=== PATIENT | female | born 1975 | race Caucasian/White ===

== ENCOUNTER 2020-08-12 15:01 | Outpatient (REF) | payer BC, SELFPAY ==
--- NOTE | 2020-08-12 15:10 | XR_ITS ---
EXAMINATION: XR KNEE, RIGHT CLINICAL INFORMATION: Injury of right knee. Pain. COMPARISON: None TECHNIQUE: Four views of the right knee. FINDINGS: Bones and soft tissues are normal. No fracture or joint effusion. Alignment is anatomic. Joint spaces are well maintained. No abnormal soft tissue calcification. XR/XR knee RT 4V IMPRESSION: Normal right knee.
== END 2020-08-12 15:02 | disposition home or self-care (01) ==
LOC: HO.HMGCX 15:01
PROVIDERS: PCP Internal Medicine; Visit Provider Nurse Practitioner Family
DX: M25.561 Pain in right knee (principal)
CPT/HCPCS: 73564

== ENCOUNTER 2020-08-16 11:24 | Outpatient (REF) | payer BC, SELFPAY ==
--- NOTE | 2020-08-16 11:25 | XR_ITS ---
EXAMINATION: XR FOREARM, LEFT CLINICAL INFORMATION: Pain in left forearm COMPARISON: None TECHNIQUE: AP and lateral views of the left forearm were obtained. FINDINGS: The bones and soft tissues are normal. No fracture. Imaged portions of the elbow and wrist are unremarkable. XR/XR forearm LT 2V IMPRESSION: Unremarkable left forearm exam
== END 2020-08-16 11:25 | disposition home or self-care (01) ==
LOC: HO.XRAY 11:24
PROVIDERS: PCP Internal Medicine; Visit Provider Nurse Practitioner Family
DX: M79.632 Pain in left forearm (principal)
CPT/HCPCS: 73090

== ENCOUNTER 2021-09-19 06:01 | Outpatient (REF) | payer BC, SELFPAY | END 2021-09-19 06:02 | disposition home or self-care (01) | LOC: HO.HMGCLDS 06:01 | PROVIDERS: PCP Internal Medicine; Visit Provider Internal Medicine | DX: Z20.822 Contact with and (suspected) exposure to COVID-19 (principal) | CPT/HCPCS: C9803; U0003; U0005 ==

== ENCOUNTER 2021-10-06 16:11 | Outpatient (REF) | payer BC, SELFPAY ==
--- NOTE | ~2021-10-06 | XR_ITS ---
EXAMINATION: XR LUMBOSACRAL SPINE CLINICAL INFORMATION: Sciatica left side COMPARISON: Lumbar spine radiograph from 02/08/2015 TECHNIQUE: Three views of the lumbosacral spine. FINDINGS: 5 nonrib-bearing lumbar-type vertebral bodies. No acute visible fracture or dislocation. Very slight levocurvature of the mid lumbar spine. Mild multilevel degenerative changes disc space narrowing, osteophyte formation, and facet arthropathy. Vertebral body heights and disc spaces are otherwise maintained. Posterior elements are intact. Paraspinal soft tissues are unremarkable. Visualized bowel gas is unremarkable. XR/XR lumbar spine 2-3V IMPRESSION: 1. No acute visible fracture or dislocation. 2. Very slight levocurvature of the mid lumbar spine. 3. Mild multilevel degenerative changes.
== END 2021-10-06 16:12 | disposition home or self-care (01) ==
LOC: HO.XRAY 16:11
PROVIDERS: PCP Internal Medicine; Visit Provider Internal Medicine
DX: M54.32 Sciatica, left side (principal)
CPT/HCPCS: 72100

== ENCOUNTER 2021-12-02 07:00 | Outpatient (RCR) | payer BC, OTHER, SELFPAY ==
--- NOTE | 2022-01-13 14:43 | MHC.PT.DC ---
[facility] [place] [facility] [place] [facility] [place] [facility] [address] Tarun Ren [address] [phone] F: [phone] F: [phone] F: [phone] F: [phone] Physical Therapy Discharge Report Diagnosis: LEFT SIDED SCIATICA Date of Surgery: Date of Evaluation: 10/30/21 Date of Discharge: 01/13/22 Treatments to Date: 7 Cancellations to Date: 2 No Shows to Date: 1 Discharge Status: Achieved Goals Improved Function Independent with HEP Patient Elected to Stop Discharge Summary: Pt BENEFITTED FROM PT INTERVENTION, INCLUDING PROGRESSIVE THER EXER AND MAN TECHN- HER RADICULAR SXS HAD CENTRALIZED AND SHE NOTED REDUCTION IN OVERALL PAIN- Pt DID NOT ATTEND LAST FEW SCHED APPTS. Electronically signed by: Silvia Coy,PT Please sign and return to therapist. Thank you for your referral.
== END 2022-01-13 14:44 | disposition home or self-care (01) ==
LOC: HO.PT 07:00
PROVIDERS: PCP Internal Medicine; Visit Provider Internal Medicine
DX: M54.32 Sciatica, left side (principal)
CPT/HCPCS: 97110; 97140; 97162

== ENCOUNTER 2021-12-22 19:27 | Outpatient (REF) | payer OTHER, SELFPAY ==
--- NOTE | ~2021-12-22 | MR_ITS ---
EXAMINATION: MR LUMBAR SPINE WITHOUT CONTRAST CLINICAL INFORMATION: Sciatica, left side. COMPARISON: Plain films of the lumbar spine 10/06/2021. TECHNIQUE: MRI of the lumbar spine was obtained using routine sequences without contrast. FINDINGS: VERTEBRAL BODIES AND PARASPINAL STRUCTURES: There is a mild levoscoliosis. There is narrowing of intervertebral disc height with loss of signal at L5-S1. Intervertebral disc height and signal appear normal at other levels. The vertebral bodies have normal height and contour no fractures are demonstrated. Marrow signal is homogenous. The visualized retroperitoneal structures are unremarkable. Uterus is bulky and there appears to be a fibroid measuring 4.1 cm along the superior aspect of the uterus (image 13/15, sequence 1). CONUS MEDULLARIS AND CAUDA EQUINA: Normal, terminating at the level of L1. The lower thoracic spinal cord appears normal. The cauda equina nerve roots and filum terminale appear normal. SPINAL LEVELS: L1-L2: The facet joints appear normal bilaterally. Disc contour is normal. There is no central stenosis or foraminal narrowing. L2-L3: There is mild bilateral facet arthropathy with ligamenta flava hypertrophy. Disc contour is normal. There is no central stenosis or foraminal narrowing. L3-L4: There is moderate right and mild left facet arthropathy. Disc contour is normal. There is no central stenosis or foraminal narrowing. L4-L5: There is moderate bilateral facet arthropathy with facet joint effusions and ligamenta flava hypertrophy. There is a diffuse disc bulge with a more focal disc protrusion posteriorly in the midline which distorts the ventral thecal sac but there is no central stenosis. There is no foraminal narrowing. L5-S1: There is mild bilateral facet arthropathy. There is a posterior disc protrusion with an annular fissure with an extruded component extending into the left subarticular recess, and there is mass effect on the traversing left S1 nerve root. The neural foramina are patent. There is no central stenosis. MR/MR lumbar spine wo con IMPRESSION: 1. At L5-S1 there is a posterior disc protrusion with an extruded component extending into the left subarticular recess with mass effect on the traversing left S1 nerve root. There is no central stenosis. 2. At L4-L5 there is a diffuse disc bulge with a more focal disc protrusion posteriorly in the midline but there is no central stenosis or foraminal narrowing. 3. The uterus appears bulky and these likely a fibroid which measures 4.1 cm. This could be further evaluated with pelvic ultrasound.
== END 2021-12-22 19:28 | disposition home or self-care (01) ==
LOC: HO.MRI 19:27
PROVIDERS: Visit Provider Internal Medicine
DX: M54.32 Sciatica, left side (principal)
CPT/HCPCS: 72148

== ENCOUNTER 2022-01-14 07:56 | Outpatient (REF) | payer OTHER, SELFPAY ==
[2022-01-19 21:02] LABS: HPV mRNA E6/E7 rflx Not Detected (Not Detected)
== END 2022-01-14 07:57 | disposition home or self-care (01) ==
LOC: HO.LAB 07:56
PROVIDERS: PCP Internal Medicine; Visit Provider Obstetrics & Gynecology
DX: Z01.419 Encounter for gynecological examination (general) (routine) without abnormal findings (principal)
CPT/HCPCS: 88142

== ENCOUNTER 2022-01-29 07:21 | Outpatient (REF) | payer OTHER, SELFPAY ==
--- NOTE | ~2022-01-29 | MM_ITS ---
EXAMINATION: MM SCREENING DIGITAL BREAST TOMOSYNTHESIS, BILATERAL CLINICAL INFORMATION: Screening. Asymptomatic. The lifetime risk of breast cancer based on the Tyrer-Cuzick Model is 15%. COMPARISON: Mammography: 02/26/2018, 09/03/2016, 08/22/2016 TECHNIQUE: Digital breast tomosynthesis is performed in both the craniocaudal and mediolateral oblique views along with computer-aided detection (CAD). Synthesized 2D images are generated from the tomosynthesis. FINDINGS: The breasts are heterogeneously dense, which may obscure small masses (ACR BI-RADS breast composition Category c). There are no significant masses, abnormal calcifications, or other abnormalities. Parenchymal pattern is similar to prior studies. There is no developing density or architectural abnormality. The axilla and skin contours are unremarkable. No significant changes. MM/MM tomosynthesis screening BI IMPRESSION: No mammographic evidence of malignancy. ASSESSMENT: BI-RADS 1: Negative RECOMMENDATION: Routine annual mammography screening. This patient's information was entered into a reminder system with a target due date for their next mammogram.
== END 2022-01-29 07:22 | disposition home or self-care (01) ==
LOC: HO.MAMMO 07:21
PROVIDERS: PCP Internal Medicine; Visit Provider Internal Medicine
DX: Z12.31 Encounter for screening mammogram for malignant neoplasm of breast (principal)
CPT/HCPCS: 77063; 77067

== ENCOUNTER → 2023-04-06 07:58 | Outpatient (BNVA) | payer OTHER, SELFPAY | PROVIDERS: PCP Internal Medicine; Visit Provider Obstetrics & Gynecology ==

== ENCOUNTER 2023-05-05 07:26 | Outpatient (REF) | payer OTHER, SELFPAY ==
--- NOTE | ~2023-05-05 | MM_ITS ---
EXAMINATION: MM SCREENING DIGITAL BREAST TOMOSYNTHESIS, BILATERAL CLINICAL INFORMATION: Screening. Asymptomatic. The lifetime risk of breast cancer based on the Tyrer-Cuzick Model is 16.2%. COMPARISON: Mammography: 01/29/2022, 02/26/2018, 09/03/2016, 08/22/2016. TECHNIQUE: Digital breast tomosynthesis is performed in both the craniocaudal and mediolateral oblique views along with computer-aided detection (CAD). Synthesized 2D images are generated from the tomosynthesis. FINDINGS: The breasts are extremely dense, which lowers the sensitivity of mammography (ACR BI-RADS breast composition Category d). There are no significant masses, abnormal calcifications, or other abnormalities. MM/MM tomosynthesis screening BI IMPRESSION: No mammographic evidence of malignancy. ASSESSMENT: BI-RADS BI-RADS 1 - Negative RECOMMENDATION: Routine annual mammography screening. 1 year F/U This examination should not preclude the clinical evaluation of a suspicious palpable abnormality. This patient's information was entered into a reminder system with a target due date for their next mammogram.
== END 2023-05-05 07:27 | disposition home or self-care (01) ==
LOC: HO.MAMMO 07:26
PROVIDERS: PCP Internal Medicine; Visit Provider Internal Medicine
DX: Z12.31 Encounter for screening mammogram for malignant neoplasm of breast (principal)
CPT/HCPCS: 77063; 77067

== ENCOUNTER → 2023-05-05 07:31 | Outpatient (BNV) | payer OTHER, SELFPAY | PROVIDERS: PCP Internal Medicine; Visit Provider Radiology Diagnostic Radiology | DX: Z12.31 Encounter for screening mammogram for malignant neoplasm of breast (principal) | CPT/HCPCS: 77063; 77067 ==

== ENCOUNTER 2023-06-30 07:53 | Outpatient (AMB) | payer OTHER, SELFPAY ==
--- NOTE | 2023-06-30 08:08 | MHC.OFFVIS ---
Intake Vital Signs 06/30/23 08:18 Height 5 ft 7 in Weight 130 lb BMI 20.4 BP 111/71 Blood Pressure Location Lt brachial Position Sitting Pulse 76 Intake Visit Reasons: Colonoscopy screening Intake Note: Patient new consult for 1st pre colonoscopy screening. Patient denies any GI issues. 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 He has no known family history GI cancer She has routine bowel pattern seems to be more on the constipated side however is able to manage with diet and fiber - Appetite is good She has no respiratory or cardiac issues She stays active works full-time No nausea, vomiting, hematemesis, hematochezia fevers [facility] Medical History Left sided sciatica Surgical History History of endometrial ablation History of tubal ligation History of appendectomy History of section Family History Father Medical history unknown Mother Diabetes CVD (cardiovascular disease) Heart disease Maternal Grandmother Breast cancer Paternal Grandmother Breast cancer Son No problems noted. Daughter No problems noted. Daughter No problems noted. Sister No problems noted. Sister No problems noted. Sister No problems noted. Social History Household Members: Spouse Household Members Other:: daughter Housing: House Alcohol intake: current Alcohol intake frequency: holidays/special occasions only Patient Tobacco Use Status: Never used Tobacco e-Cigarette/Vaping Use: Never Used Second Hand Smoke Exposure: No service: No Current occupational status: employed Current occupation: Bank Current occupational exposures/hazards: No Sexual orientation: Straight/Heterosexual Gender identity: Female Female Reproductive History Menstrual Age of Menarche: 12 Review of Systems Const All systems reviewed & are unremarkable except as noted in HPI and below Card Denies chest pain and Denies dyspnea Resp Denies dyspnea GI Denies abdominal pain, Denies hematochezia, Denies change in bowel habits, Denies heartburn, Denies nausea and Denies vomiting Physical Exam Vital Signs: Last Vital Signs Pulse 76 06/30/23 08:18 BP 111/71 06/30/23 08:18 BMI result Body Mass Index 20.4 Const General: cooperative, healthy appearing, comfortable, no acute distress and well groomed Nutritional Appearance: thin Orientation/consciousness: patient oriented x3 Limitations: no limitations Eyes Sclerae: sclerae normal Resp Effort & Inspection: normal respiratory effort and able to speak in complete sentences Auscultation: clear to auscultation bilaterally, no rales, no rhonchi and no wheezes Cardio Rate: regular rate Rhythm: regular rhythm Heart sounds: S1 normal heart sound present and S2 normal heart sound present GI Palpation (GI): Soft to palpation and nontender Auscultation: normal bowel sounds Skin General skin exam: no rashes or lesions noted Neuro General: patient oriented x3 Extrem General: Yes full ROM Psych Appearance: grossly normal and well kempt Mental Status: mental status grossly normal Speech and movement: Normal speech and movement present and Clear speech present Affect: normal affect Attitude: cooperative Thought process: Normal thought process present Thought content: Normal thought content present Insight: Good insight present (Psych) Judgement: Good judgement present (Psych) Assessment & Plan Assessment & Plan (1) Encounter for screening colonoscopy: Comment: A very pleasant 48-year-old female index screening colonoscopy no GI complaints Code(s): Z12.11 - Encounter for screening for malignant neoplasm of colon Plan: Index screening colonoscopy MiraLax Gatorade split prep Orders: Orders Colonoscopy - GI Use Only Today Z12.11 - Encounter for screening for malignant neoplasm of colon Medications: New polyethylene glycol 3350 (Miralax) Take as directed by mouth the day before your procedure. 238 grams PO ONCE 1 day PRN 238 grams 0RF laxative effect bisacodyl (Dulcolax (bisacodyl)) Take 4 tablets by mouth at 12:00pm the day before your procedure. 20 mg (4 x 5 mg) PO ONCE 1 day 4 tabs 0RF colonoscopy prep Z12.11 - Encounter for screening for malignant neoplasm of colon Patient Instructions: Pleasant, healthy 48-year-old female referred for index screening colonoscopy Index screening colonoscopy MiraLax Gatorade split prep-the literature given Discussed procedure, rare risks, need for escorted due to anesthesia Encouraged to call questions or concerns Coding Level of Care Code Est Pt Level 3 (41169) Diagnoses Encounter for screening colonoscopy Z12.11 Time Spent (min) 30
[2023-06-30 08:18] VITALS: BP 111/71; PULSE 76; BMI 20.4
== END 2023-06-30 09:50 | disposition home or self-care (01) ==
PROVIDERS: PCP Internal Medicine; Visit Provider Physician Assistant
DX: Z01.818 Encounter for other preprocedural examination (principal); Z12.11 Encounter for screening for malignant neoplasm of colon
CPT/HCPCS: S0285

== ENCOUNTER → 2023-06-30 07:53 | Outpatient (BNVA) | payer OTHER, SELFPAY | PROVIDERS: PCP Internal Medicine; Visit Provider Physician Assistant ==

== ENCOUNTER 2024-03-22 16:58 | Outpatient (AMB) | payer OTHER, SELFPAY ==
--- NOTE | 2024-03-22 17:02 | MHC.PC.OV ---
Vital Signs 03/22/24 17:04 Height 5 ft 7 in Weight 132 lb BMI 20.7 BP 108/76 Blood Pressure Location Lt brachial Position Sitting Intake Visit Reasons: Physical Exam Intake Note: Patient here for a physical exam Outside Energy Sales Representatives Required: No Accompanied by: Self / Same As Patient Allergies cyclobenzaprine [From Flexeril] Allergy (Intermediate, Verified 03/22/24 17:46) upse stomach tramadol Adverse Reaction (Intermediate, Verified 03/22/24 17:46) nausea Medication List - Last Reconciled 03/22/24 by Jillian Smith MD No Known Home Meds Tobacco use date assessed: 03/22/24 Dental Screening Dental Screen Date: 03/22/24 Did you have a dental visit in the last 12 months?: Yes Did you have a dental problem in the last 6 months where you did not have access to dental care?: No Was dental information given to patient?: Patient has dentist HPI HPI Comments History of Present Illness Details This is a 49-year-old female that comes for her physical exam. Last mammogram done 05/06/2023 and was normal. Last Pap smear was 2021. Will have her colonoscopy in 07/07/2024. No chest pain or shortness on breath. Doing well. [facility] Medical History (Updated 03/22/24 @ 17:59 by Jillian Smith MD) Left sided sciatica Surgical History History of endometrial ablation History of tubal ligation History of appendectomy History of section Family History (Updated 03/22/24 @ 17:50 by Jillian Smith MD) Father Stomach cancer, Onset Age: 80 Mother Diabetes CVD (cardiovascular disease) Heart disease Lung cancer CKD (chronic kidney disease) Maternal Grandmother Breast cancer Paternal Grandmother Breast cancer Son No problems noted. Daughter No problems noted. Daughter No problems noted. Sister No problems noted. Sister No problems noted. Sister No problems noted. Social History Household Members: Spouse Household Members Other:: daughter Housing: House Alcohol intake: current Alcohol intake frequency: holidays/special occasions only Patient Tobacco Use Status: Never used Tobacco e-Cigarette/Vaping Use: Never Used Second Hand Smoke Exposure: No service: No Current occupational status: employed Current occupation: Bank Current occupational exposures/hazards: No Sexual orientation: Straight/Heterosexual Gender identity: Female Cognitive needs: No Hearing needs: No Vision needs: No Female Reproductive History Menstrual Age of Menarche: 12 Questionnaire PHQ-9 Over the last 2 weeks, how often have you been bothered by any of the following problems? 1. Little interest or pleasure in doing things: not at all 2. Feeling down, depressed, or hopeless: not at all 3. Trouble falling or staying asleep, or sleeping too much: not at all 4. Feeling tired or having little energy: not at all 5. Poor appetite or overeating: not at all 6. Feeling bad about yourself - or that you are a failure or have let yourself or your family down: not at all 7. Trouble concentrating on things, such as reading the newspaper or watching television: not at all 8. Moving or speaking so slowly that other people could have noticed. Or the opposite - being so fidgety or restless that you have been moving around a lot more than usual: not at all 9. Thoughts that you would be better off or of hurting yourself in some way: not at all Total score: 0 Depression Screening Interpretation: Negative Depression Screening Done: Yes 16381 - PHQ-9 Billing: Yes Source: Developed by Drs. Tera Parsons, Awilda Hernandez, Aakash Adkins and colleagues, with an educational madhuri from [employer]. Thrive Questionnaire Date Thrive assessed: 03/22/24 I am a: Patient What is your living situation today?: I have a steady place to live Within the past 12 months, did the food you bought not last and you didn't have the money to get more?: Never true Within the past 12 months, did you worry whether your food would run out before you got money to buy more?: Never true Do you have trouble paying for medicines?: No Do you have trouble getting transportation to medical appointments?: No Do you have trouble paying your heating and electricity bill?: No Do you have trouble taking care of your child, family member or friend?: No Do you have trouble with day-to-day activities such as bathing, preparing meals, shopping, managing finances, etc.?: No Are you currently unemployed and looking for a job?: No Are you interested in more education?: No Please select the resources that you would like help with: None Currently or been in a relationship where the following occur: no concerns reported THRIVE Score: 0 AUDIT C Alcohol Use Questionnaire (AUDIT-C) 1. How often do you have a drink containing alcohol?: 2-4 times a month 2. How many drinks containing alcohol do you have on a typical day when you are drinking?: 1 or 2 3. How often do you have six or more drinks on one occasion?: Never Total Score: 2 VICK-7 AMB Questionnaire VICK-7 Date VICK - 7 assessed: 03/22/24 Feeling nervous, anxious, or on edge: 0 = Not at all Not being able to stop or control worryin = Not at all Worrying too much about different things: 0 = Not at all Trouble relaxin = Not at all Being so restless that it is hard to sit still: 0 = Not at all Becoming easily annoyed or irritable: 0 = Not at all Feeling afraid as if something awful might happen: 0 = Not at all Total VICK-7 score (0-4 normal; 5-9 mild; 10-14 moderate; 15-21 severe): 0 Source: Developed by Drs. Tera Parsons, Awilda Hernandez, Aakash Adkins and colleagues, with an educational madhuri from [employer]. Review of Systems Const All systems reviewed & are unremarkable except as noted in HPI and below Eyes Reports no additional complaints, Denies change in vision and Denies other visual disturbances Card Denies chest pain at rest, Denies chest pain with activity, Denies edema, Denies irregular heart rhythm, Denies claudication, Denies dyspnea, Denies dyspnea on exertion, Denies orthopnea, Denies paroxysmal nocturnal dyspnea and Denies slow heart rate Resp Denies cough, Denies dyspnea and Denies dyspnea on exertion Neuro Denies confusion Psych Denies confusion Physical exam (Primary Care) Vital Signs: Last Vital Signs BP 108/76 03/22/24 17:04 BMI result Body Mass Index 20.7 Tobacco/Smoking Status: Tobacco use Status Tobacco use date assessed 03/22/24 03/22/24 17:08 Patient Tobacco Use Status Never used Tobacco 03/22/24 17:08 e-Cigarette/Vaping Use Never Used 03/22/24 17:08 PHQ-9: PHQ-9 Score PHQ-9: Total score 0 03/22/24 17:08 Depression Screening Interpretation: Negative Thrive Assessment: Date of Thrive Assessment Date Thrive assessed 03/22/24 03/22/24 17:08 Currently or been in a relationship where the following occur: no concerns reported Const General: No confusion Orientation/consciousness: patient oriented x3 and No confusion Eyes General: appearance normal, both eyes and all related structures Eyelids: Yes eyelids normal Conjunctivae: conjunctivae normal Neck Neck: Yes normal visual inspection and Yes supple Resp Effort & Inspection: normal respiratory effort Auscultation: clear to auscultation bilaterally Cardio Jugular venous distension: no JVD Rate: regular rate Rhythm: regular rhythm Heart sounds: S1 normal heart sound present and S2 normal heart sound present GI Inspection: Yes normal to inspection Palpation (GI): Soft to palpation and nontender Auscultation: normal bowel sounds Skin General skin exam: no rashes or lesions noted Neuro General: patient oriented x3, no focal motor deficits and No confusion Extrem General: Yes full ROM Psych Appearance: grossly normal Assessment and Plan Assessment & Plan (1) Physical exam: Code(s): Z00.00 - Encounter for general adult medical examination without abnormal findings Plan: Repeat in a year. Orders: Orders Thyroid Stimulating Hormone Today K59.04 - Chronic idiopathic constipation Comprehensive Spencer. Panel Fast Today Z00.00 - Encounter for general adult medical examination without abnormal findings Lipid Panel Today Z00.00 - Encounter for general adult medical examination without abnormal findings Coding Level of Care Code Est Pt Prev Care 40-64y(27445) Diagnoses Physical exam Z00.00 Time Spent (min) 31
[2024-03-22 17:04] VITALS: BP 108/76; BMI 20.7
== END 2024-03-22 17:57 | disposition home or self-care (01) ==
PROVIDERS: PCP Internal Medicine; Visit Provider Internal Medicine
DX: Z00.00 Encounter for general adult medical examination without abnormal findings (principal)
CPT/HCPCS: 99396

== ENCOUNTER 2024-06-23 08:04 | Day surgery (SDC) | payer OTHER, SELFPAY ==
--- NOTE | 2024-06-22 09:05 | P.CONAN_ITS ---
Documented by User: Emilie Scruggs NP 06/22/24 09:06 HPI - Anesthesia Eval Consult details Narrative: 49yo F for Colonoscopy PMFSH Active Problems Active Problems: All Active Problems Chronic idiopathic constipation (Acute) Physical exam (Acute) Encounter for screening colonoscopy (Acute) Well woman exam (Acute) Left sided sciatica (Acute) Fall (Acute) Left forearm pain (Acute) Right knee injury (Acute) Past Medical History Medical History Left sided sciatica Family History Family History (Updated 03/22/24 @ 17:50 by Jillian Smith MD) Father Stomach cancer, Onset Age: 80 Mother Diabetes CVD (cardiovascular disease) Heart disease Lung cancer CKD (chronic kidney disease) Maternal Grandmother Breast cancer Paternal Grandmother Breast cancer Son No problems noted. Daughter No problems noted. Daughter No problems noted. Sister No problems noted. Sister No problems noted. Sister No problems noted. Surgical History Surgical History History of endometrial ablation History of tubal ligation History of appendectomy History of section Social History Social History Household Members: Spouse Household Members Other:: daughter Housing: House Are you a primary critical care nurse practitioner to a significant other at home: No Do you presently have visiting nurse or other home services: No Alcohol intake: current Alcohol intake frequency: holidays/special occasions only Patient Tobacco Use Status: Never used Tobacco e-Cigarette/Vaping Use: Never Used Second Hand Smoke Exposure: No Have you been hit, kicked, punched, or otherwise hurt by someone within the past year? If so, by whom?: No Are you DNR?: No Advance Directives: No Advance Directives Information Provided: Yes Nutrition Risks: No Nutritional Risk service: No Current occupational status: employed Current occupation: Tail Current occupational exposures/hazards: No Sexual orientation: Straight/Heterosexual Gender identity: Female Cognitive needs: No Hearing needs: No Vision needs: No Meds Allergies Allergy/AdvReac Type Severity Reaction Status Date / Time cyclobenzaprine Allergy Intermediate upse Verified 06/23/24 08:03 [From Flexeril] stomach tramadol AdvReac Intermediate nausea Verified 06/23/24 08:03 Home Medications ?Medication ?Instructions ?Recorded ?Confirmed ?Last Taken ?Type No Known Home Meds 03/22/24 06/23/24 Unknown History Assessment and Plan Assessment Anesthesia Assessment: Chart Reviewed Documented by User: Cintia Olivas MD 06/23/24 08:19 [facility] Past Medical History Medical History Left sided sciatica Family History Family History (Updated 03/22/24 @ 17:50 by Jillian Smith MD) Father Stomach cancer, Onset Age: 80 Mother Diabetes CVD (cardiovascular disease) Heart disease Lung cancer CKD (chronic kidney disease) Maternal Grandmother Breast cancer Paternal Grandmother Breast cancer Son No problems noted. Daughter No problems noted. Daughter No problems noted. Sister No problems noted. Sister No problems noted. Sister No problems noted. Family history of problems with anesthesia: No Surgical History Surgical History History of endometrial ablation History of tubal ligation History of appendectomy History of section History of Problems with Anesthesia: No Social History Social History Household Members: Spouse Household Members Other:: daughter Housing: House Are you a primary critical care nurse practitioner to a significant other at home: No Do you presently have visiting nurse or other home services: No Alcohol intake: current Alcohol intake frequency: holidays/special occasions only Patient Tobacco Use Status: Never used Tobacco e-Cigarette/Vaping Use: Never Used Second Hand Smoke Exposure: No Have you been hit, kicked, punched, or otherwise hurt by someone within the past year? If so, by whom?: No Are you DNR?: No Advance Directives: No Advance Directives Information Provided: Yes Nutrition Risks: No Nutritional Risk service: No Current occupational status: employed Current occupation: Tail Current occupational exposures/hazards: No Sexual orientation: Straight/Heterosexual Gender identity: Female Cognitive needs: No Hearing needs: No Vision needs: No Meds Allergies Allergy/AdvReac Type Severity Reaction Status Date / Time cyclobenzaprine Allergy Intermediate upse Verified 06/23/24 08:03 [From Flexeril] stomach tramadol AdvReac Intermediate nausea Verified 06/23/24 08:03 Home Medications ?Medication ?Instructions ?Recorded ?Confirmed ?Last Taken ?Type No Known Home Meds 03/22/24 06/23/24 Unknown History Exam Airway Mallampati Class: II (cap left) TM Dist: >3cm Neck ROM: Full Heart: rrr Lungs: cta Assessment and Plan Assessment Anesthesia Assessment: Anesthesia Plan Discussed Final Anesthetic Review Family History of Problems with Anesthesia: No History of Problems with Anesthesia: No NPO: Yes ASA Class: II Final Preanesthetic Review: No Changes in Pt Med Stat, Meds/Allgs Chart Reviewed and Consent Obtained/Reviewed Patient Risk: Low Procedure Risk: Low Anesthetic Plan Anesthetic Plan: MAC: Disposition: Standard PACU
--- NOTE | 2024-06-23 08:11 | MHC.SHP ---
Pre-Procedural Eval Section A - 24 Hr Update-Section A only Date of Service: 06/23/24 The patient is an INPATIENT: No The patient has been examined within 24 hours of the surgical procedure. The History & Physical has been completed within 30 days and I have reviewed it.: No Section B - Complete if H&P > 30 days Chief Complaint: Colon cancer screening Relevant Family History (Specify if Yes): No Relevant Social History: None Present Medications: see Short Stay Collaborative assessment Medical History: Significant History (Left sided sciatica) History of Previous Operations: Relevant previous surgery/procedure and date(s) (History of endometrial ablation History of tubal ligation History of appendectomy History of section) Allergies: Allergies Allergy/AdvReac Type Severity Reaction Status Date / Time cyclobenzaprine Allergy Intermediate upse Verified 06/23/24 08:03 [From Flexeril] stomach tramadol AdvReac Intermediate nausea Verified 06/23/24 08:03 Review of Systems Sugical H&P ROS: Negative: Constitution, Cardiovascular, Respiratory and Gastrointestinal Exam Surgical H&P Exam: Normal: Heart, Normal: Lungs, Normal: Extremities and Normal: Abdomen Plan Diagnosis/Plan: Unchanged I have reviewed the history and physical and performed a pertinent physical examination on my patient. No changes have occurred unless specified. Time Spent With Patient Time: Total time managing care of this patient today ____ minutes.
[2024-06-23 08:12] VITALS: BMI 20.6
[2024-06-23] MEDS: Lactated Ringers 1,000 ML 100 ML IVCONT (08:16)
[2024-06-23 08:19] VITALS: BP 122/70; PULSE 54; RESP 18; TEMP 36.1; O2SAT 100
[2024-06-23 09:49] VITALS: BP 98/55; PULSE 65; RESP 16; TEMP 36.6; O2SAT 100
--- NOTE | 2024-06-23 09:49 | HO.OPN-COLON ---
Colonoscopy Operative Note Operative Note Date of Service: 06/23/24 Narrative: COLONOSCOPY TILL CECUM WITH BIOPSIES AND SNARE POLYPECTOMY Pre-op diagnosis: Colon cancer screening (first colonoscopy). Post-op diagnosis:? Colon polyps, Diverticulosis, hemorrhoids Endoscopist:? Ronaldo Blum MD Anesthesia:?MAC Consent: Indications for the procedure and potential complications of bleeding, perforation, reaction to medications and missed diagnosis were discussed with the patient and informed consent was obtained. Instrument: Olympus CF H 190 L variable stiffness adult colonoscope Monitoring: Vital signs and clinical assessment, intermittent blood pressure monitoring, continuous EKG monitoring, Pulse oximetry and Carbon Dioxide monitoring were done throughout the procedure. Please see anesthesia flowsheet. Colon withdrawl time was 20 minutes. Procedure: The patient was placed in the left lateral decubitis position and pre-procedure medications were administered. After a digital rectal examination of the ano-rectum, the video colonoscope was inserted into the rectum and advanced through the colon to the cecum. The colonoscope was slowly withdrawn in a retrograde panoramic fashion and the colon mucosa was carefully examined including a retroflexed view of the rectum. Findings and interventions are described below. Procedure Difficulty: Colon was long and tortuous and there was some loop formation Findings: Terminal Ileum: Not evaluated Cecum: Two 2-3 mm sessile polyps - removed with a cold biopsy Ascending Colon: Normal Transverse Colon: A 2-3 mm sessile polyp - removed with a cold biopsy Descending Colon: Normal Sigmoid Colon: Mild diverticulosis Rectum: A 7-8 mm sessile polyp in the distal rectum - removed with a cold snare Ano-rectum: Small internal hemorrhoids Colon preparation: Excellent, after some irrigation. [place] Bowel Preparation Scale Right colon; 3 Transverse colon: 3 Left colon; 3 (0 = Unprepared colon segment with mucosa not seen due to solid stool that cannot be cleared. 1 = Portion of mucosa of the colon segment seen, but other areas of the colon segment not well seen due to staining, residual stool and/or opaque liquid. 2 = Minor amount of residual staining, small fragments of stool and/or opaque liquid, but mucosa of colon segment seen well. 3 = Entire mucosa of colon segment seen well with no residual staining, small fragments of stool or opaque liquid) Impression and Post Procedure Diagnosis: Colonoscopy Findings: Four small polyps were removed Mild diverticulosis seen in the sigmoid colon Small hemorrhoids on retroflexed exam. Plan: I will send a letter with biopsy results. Repeat Colonoscopy in 3-5 years if polyps are adenomatous and 10 year if polyps are hyperplastic. Above findings were reviewed with the patient by the nurse and relevant handouts were given and the discharge area.
[2024-06-23 10:04] VITALS: BP 108/63; PULSE 59; RESP 18; TEMP 36.2; O2SAT 100
== END 2024-06-23 10:35 | disposition home or self-care (01) ==
PROVIDERS: PCP Internal Medicine; Visit Provider Internal Medicine Gastroenterology
PROC: 0DJD8ZZ Inspection of Lower Intestinal Tract, Via Natural or Artificial Opening Endoscopic (ICD-10-PCS; CPT 45378; principal; 2024-06-23 09:20)
DX: Z12.11 Encounter for screening for malignant neoplasm of colon (principal); D12.8 Benign neoplasm of rectum; K63.5 Polyp of colon; K57.30 Diverticulosis of large intestine without perforation or abscess without bleeding; K64.8 Other hemorrhoids; M54.32 Sciatica, left side; Z79.899 Other long term (current) drug therapy; Z88.8 Allergy status to other drugs, medicaments and biological substances; Z98.890 Other specified postprocedural states
CPT/HCPCS: 45385; 45380; 88305; J2704

== ENCOUNTER → 2024-06-23 08:04 | Outpatient (BNV) | payer OTHER, SELFPAY | PROVIDERS: PCP Internal Medicine; Visit Provider Internal Medicine Gastroenterology | DX: Z12.11 Encounter for screening for malignant neoplasm of colon (principal); D12.0 Benign neoplasm of cecum; D12.3 Benign neoplasm of transverse colon; D12.8 Benign neoplasm of rectum; K57.30 Diverticulosis of large intestine without perforation or abscess without bleeding; K64.8 Other hemorrhoids | CPT/HCPCS: 45380; 45385 ==

== ENCOUNTER 2025-02-22 09:53 | Outpatient (AMB) | payer OTHER, SELFPAY ==
[2025-02-22 10:00] VITALS: BP 120/80; BMI 20.7
--- NOTE | 2025-02-22 10:00 | MHC.PC.OV ---
Vital Signs 02/22/25 10:00 Height 5 ft 7 in Weight 132 lb BMI 20.7 BP 120/80 Blood Pressure Location Lt brachial Position Sitting Intake Visit Reasons: bilateral hand and feet numbness Technical Translator Required: No Accompanied by: Self / Same As Patient Allergies cyclobenzaprine [From Flexeril] Allergy (Intermediate, Verified 02/22/25 10:20) upse stomach tramadol Adverse Reaction (Intermediate, Verified 02/22/25 10:20) nausea Medication List - Last Reconciled 02/22/25 by Jillian Smith MD No Known Home Meds Tobacco use date assessed: 02/22/25 Dental Screening Dental Screen Date: 02/22/25 Did you have a dental visit in the last 12 months?: Yes Did you have a dental problem in the last 6 months where you did not have access to dental care?: No Was dental information given to patient?: Patient has dentist HPI HPI Comments History of Present Illness Details The patient is a 49-year-old female presenting with paresthesia and leg muscle spasms. She describes experiencing numbness that is primarily on the left side of her body, but the right side can also be affected to a lesser extent. The numbness targets her foot, hand, and face, imparting a sensation rafa to that following the decline of Novocaine's effects. Despite initially attributing these symptoms to job-related stress, they persist and necessitate medical evaluation. The numbness does not accompany muscular weakness. In conjunction with paresthesia, she endures severe muscle spasms in her legs, notably affecting her well-being and sleep patterns. She supplements with magnesium citrate and glycinate twice daily to manage these spasms without definitive results mentioned. There is no family history of neurological disorders like multiple sclerosis, and the patient denies having blurry vision, speech issues, or migraines. Notably, a history of constipation is present without recent changes. [facility] Medical History (Updated 02/22/25 @ 10:31 by Jillian Smith MD) Left sided sciatica Surgical History History of endometrial ablation History of tubal ligation History of appendectomy History of section Family History Father Stomach cancer, Onset Age: 80 Mother Diabetes CVD (cardiovascular disease) Heart disease Lung cancer CKD (chronic kidney disease) Maternal Grandmother Breast cancer Paternal Grandmother Breast cancer Son No problems noted. Daughter No problems noted. Daughter No problems noted. Sister No problems noted. Sister No problems noted. Sister No problems noted. Social History Household Members: Spouse Household Members Other:: daughter Housing: House Are you a primary care team assistant to a significant other at home: No Do you presently have visiting nurse or other home services: No Alcohol intake: current Alcohol intake frequency: holidays/special occasions only Patient Tobacco Use Status: Never used Tobacco e-Cigarette/Vaping Use: Never Used Second Hand Smoke Exposure: No service: No Current occupational status: employed Current occupation: [employer] Current occupational exposures/hazards: No Sexual orientation: Straight/Heterosexual Gender identity: Female Cognitive needs: No Hearing needs: No Vision needs: No Female Reproductive History Menstrual Age of Menarche: 12 Questionnaire PHQ-9 Over the last 2 weeks, how often have you been bothered by any of the following problems? 1. Little interest or pleasure in doing things: not at all 2. Feeling down, depressed, or hopeless: not at all 3. Trouble falling or staying asleep, or sleeping too much: not at all 4. Feeling tired or having little energy: not at all 5. Poor appetite or overeating: not at all 6. Feeling bad about yourself - or that you are a failure or have let yourself or your family down: not at all 7. Trouble concentrating on things, such as reading the newspaper or watching television: not at all 8. Moving or speaking so slowly that other people could have noticed. Or the opposite - being so fidgety or restless that you have been moving around a lot more than usual: not at all 9. Thoughts that you would be better off or of hurting yourself in some way: not at all Total score: 0 Depression Screening Interpretation: Negative Depression Screening Done: Yes 42903 - PHQ-9 Billing: Yes Source: Developed by Drs. Tera Parsons, Awilda Hernandez, Aakash Adkins and colleagues, with an educational madhuri from [employer]. Thrive Questionnaire Date Thrive assessed: 02/22/25 I am a: Patient What is your living situation today?: I have a steady place to live Within the past 12 months, did the food you bought not last and you didn't have the money to get more?: Never true Within the past 12 months, did you worry whether your food would run out before you got money to buy more?: Never true Do you have trouble paying for medicines?: No Do you have trouble getting transportation to medical appointments?: No Do you have trouble paying your heating and electricity bill?: No Do you have trouble taking care of your child, family member or friend?: No Do you have trouble with day-to-day activities such as bathing, preparing meals, shopping, managing finances, etc.?: No Are you currently unemployed and looking for a job?: No Are you interested in more education?: No Please select the resources that you would like help with: None Currently or been in a relationship where the following occur: I choose not to answer THRIVE Score: 0 AUDIT C Alcohol Use Questionnaire (AUDIT-C) 1. How often do you have a drink containing alcohol?: 2-3 times a week 2. How many drinks containing alcohol do you have on a typical day when you are drinking?: 1 or 2 3. How often do you have six or more drinks on one occasion?: Never Total Score: 3 VICK-7 AMB Questionnaire VICK-7 Date VICK - 7 assessed: 02/22/25 Feeling nervous, anxious, or on edge: 0 = Not at all Not being able to stop or control worryin = Not at all Worrying too much about different things: 0 = Not at all Trouble relaxin = Not at all Being so restless that it is hard to sit still: 0 = Not at all Becoming easily annoyed or irritable: 0 = Not at all Feeling afraid as if something awful might happen: 0 = Not at all Total VICK-7 score (0-4 normal; 5-9 mild; 10-14 moderate; 15-21 severe): 0 Source: Developed by Drs. Tera Parsons, Awilda Hernandez, Aakash Adkins and colleagues, with an educational madhuri from [employer]. VICK-7 Assessment Billing VICK-7 Assessment Tool: VICK-7 Assessment 30116 Review of Systems Const All systems reviewed & are unremarkable except as noted in HPI and below Card Denies chest pain at rest, Denies chest pain with activity, Denies edema, Denies irregular heart rhythm, Denies claudication, Denies dyspnea, Denies dyspnea on exertion, Denies orthopnea, Denies paroxysmal nocturnal dyspnea and Denies slow heart rate Resp Denies cough, Denies dyspnea and Denies dyspnea on exertion GI Denies abdominal pain, Denies change in bowel habits, Denies excessive flatus, Denies nausea and Denies vomiting Denies urinary incontinence, Denies urinary hesitancy and Denies urinary urgency Musc Denies atrophy, Denies deformity and Denies limited range of motion Physical exam (Primary Care) Vital Signs: Last Vital Signs BP 120/80 02/22/25 10:00 BMI result Body Mass Index 20.7 Tobacco/Smoking Status: Tobacco use Status Tobacco use date assessed 02/22/25 02/22/25 10:04 Patient Tobacco Use Status Never used Tobacco 02/22/25 10:04 e-Cigarette/Vaping Use Never Used 02/22/25 10:04 PHQ-9: PHQ-9 Score PHQ-9: Total score 0 02/22/25 10:22 Depression Screening Interpretation: Negative Thrive Assessment: Date of Thrive Assessment Date Thrive assessed 02/22/25 02/22/25 10:04 Currently or been in a relationship where the following occur: I choose not to answer Resp Effort & Inspection: normal respiratory effort Auscultation: clear to auscultation bilaterally Cardio Jugular venous distension: no JVD Rate: regular rate Rhythm: regular rhythm Heart sounds: S1 normal heart sound present and S2 normal heart sound present Extrem General: Yes full ROM Coding Level of Care Code Est Pt Level 3 (61201) Complex EM visit Add On G2211 Diagnoses Hand paresthesia R20.2 Leg paresthesia R20.2 Muscle spasm M62.838 Additional Codes VICK-7 Assessment Billing - VICK-7 Assessment Tool: VICK-7 Assessment 34937 ([id number]) PHQ-9 - 23850 - PHQ-9 Billing: Yes ([id number]) Time Spent (min) 19 Assessment & Plan Assessment & Plan (1) Hand paresthesia: Code(s): R20.2 - Paresthesia of skin Category: Medical (2) Leg paresthesia: Code(s): R20.2 - Paresthesia of skin Category: Medical (3) Muscle spasm: Code(s): M62.838 - Other muscle spasm Category: Medical Plan Plans to evaluate the patient's neurological status include ordering an MRI of the brain and a nerve conduction study for both upper and lower limbs. Blood work will assess magnesium levels, potentially correlating with leg muscle spasms. A referral to neurology has been made to provide a detailed evaluation with the possible differential diagnoses including neuropathy and multiple sclerosis. The long-standing constipation is noted but remains under stable management. This multi-faceted approach will allow for accurate diagnosis and appropriate treatment. Patient was informed and verbally consented to the use of an ambient scribe for clinic note documentation during this visit. During our discussion, I explained to the patient that her symptoms could be indicative of a neuropathy, potential cervical or lumbar issues, or less likely, multiple sclerosis. We discussed that an MRI of the brain is to be scheduled to rule out central causes given the primarily unilateral presentation. Furthermore, nerve conduction studies will help clarify the extent and nature of the nerve involvement for both limbs. I explained the importance of assessing magnesium levels, given her muscle spasms and current supplementation. Although family history does not suggest a genetic predisposition, neurological consultation was recommended. Potential findings may influence management strategies. The patient understood the importance of these diagnostic evaluations and agreed to proceed with the planned studies. Orders: Orders NE nerve conduction velocity Today R20.2 - Paresthesia of skin Thyroid Stimulating Hormone Today R20.2 - Paresthesia of skin MR head/brain wo con Today R20.0 - Anesthesia of skin NE electromyogram (EMG) Today R20.2 - Paresthesia of skin Magnesium Today M62.838 - Other muscle spasm Vitamin B12 and Folate Today E53.8 - Deficiency of other specified B group vitamins, R20.2 - Paresthesia of skin Comprehensive [place]. Panel Fast Today R20.2 - Paresthesia of skin Lipid Panel Today E78.5 - Hyperlipidemia, unspecified Vitamin D 25-OH Total Today E55.9 - Vitamin D deficiency, unspecified Referrals Neurology Referral R20.2 - Paresthesia of skin Patient Instructions: - Await scheduling of an MRI of the brain and nerve conduction study. - Follow through with the blood work as discussed, including fasting sugar and cholesterol tests. - Continue current supplementation of magnesium as previously advised. - Monitor and record any exacerbation of neurological symptoms or new developments. - Follow-up with neurology as scheduled for specialized assessment.
== END 2025-02-22 10:43 | disposition home or self-care (01) ==
LOC: HO.HMCH 09:54
PROVIDERS: PCP Internal Medicine; Visit Provider Internal Medicine
DX: R20.2 Paresthesia of skin (principal); M62.838 Other muscle spasm

== ENCOUNTER → 2025-02-22 09:53 | Outpatient (BNVA) | payer OTHER, SELFPAY | PROVIDERS: PCP Internal Medicine; Visit Provider Internal Medicine | DX: R20.2 Paresthesia of skin (principal); M62.838 Other muscle spasm | CPT/HCPCS: 96127 ==

== ENCOUNTER 2025-03-03 08:03 | Outpatient (REF) | payer OTHER, SELFPAY ==
[2025-03-03 09:09] LABS: Alanine Aminotransferase 21 U/L (0-31); Albumin Level 4.1 g/dL (3.5-5.0); Alkaline Phosphatase 68 U/L (39-117); Anion Gap 12 (12-20); Aspartate Amino Transferase 36 U/L (5-31); Bilirubin Total 0.6 mg/dL (0.0-1.0); Blood Urea Nitrogen 13 mg/dL (9-16); Calcium 9.5 mg/dL (8.4-10.2); Carbon Dioxide 28 mmol/L (22-29); Chloride 106 mmol/L (96-108); Cholesterol 191 mg/dL (<200); Estimated Glomerular Filt Rate > 60; Glucose Fasting 92 mg/dL (60-99); HDL Cholesterol 70 mg/dL (>40); LDL Cholesterol Calculated 101 mg/dL (<100); Magnesium 2.1 mg/dL (1.6-2.6); Sodium 141 mmol/L (135-145); Triglycerides 101 mg/dL (<150)
[2025-03-03 09:33] LABS: Thyroid Stimulating Hormone 1.18 uIU/mL (0.32-4.0); Vitamin D 25-OH Total 42.9 ng/mL (>30)
[2025-03-03 09:39] LABS: Folate 14.1 ng/mL (> or = 4.0); Vitamin B12 306 pg/mL (200-900)
== END 2025-03-03 08:04 | disposition home or self-care (01) ==
LOC: HO.LAB 08:03
PROVIDERS: PCP Internal Medicine; Visit Provider Internal Medicine
DX: R20.2 Paresthesia of skin (principal); E78.5 Hyperlipidemia, unspecified; M62.838 Other muscle spasm; E53.8 Deficiency of other specified B group vitamins; E55.9 Vitamin D deficiency, unspecified
CPT/HCPCS: 36415; 80053; 80061; 82306; 82607; 82746; 83735; 84443

== ENCOUNTER 2025-03-07 16:28 | Outpatient (REF) | payer OTHER, SELFPAY ==
--- NOTE | ~2025-03-07 | MR_ITS ---
EXAMINATION: MR BRAIN WITHOUT CONTRAST CLINICAL INFORMATION: Left sided numbness. COMPARISON: None available. TECHNIQUE: MRI of the brain was obtained using routine sequences without contrast. FINDINGS: No restricted diffusion. No acute intracranial hemorrhage, mass effect, midline shift, hydrocephalus or herniation. There are a few scattered, nonspecific, punctate subcortical white matter hyperintense T2 FLAIR signal in the frontal regions. Flow-void signal within the main cerebral vessels is normal. Sellar/suprasellar region demonstrated no signal abnormality or masses. Craniocervical junction demonstrates normal position of the cerebellar tonsils. Mucosal thickening, ethmoid air cells. Dextroconvex nasal septum deviation. MR/MR head/brain wo con IMPRESSION: No acute or structural brain abnormality. Nonspecific subcortical T2 FLAIR signal foci, bifrontal lobes. Electronically signed by: Denis Valdez MD 03/08/2025 07:08 AM EDT
== END 2025-03-07 16:29 | disposition home or self-care (01) ==
LOC: HO.MRI 16:28
PROVIDERS: PCP Internal Medicine; Visit Provider Internal Medicine
DX: R20.0 Anesthesia of skin (principal)
CPT/HCPCS: 70551

== ENCOUNTER → 2025-03-07 16:35 | Outpatient (BNV) | payer OTHER, SELFPAY | PROVIDERS: PCP Internal Medicine; Visit Provider Radiology Diagnostic Radiology | DX: R90.89 Other abnormal findings on diagnostic imaging of central nervous system (principal) | CPT/HCPCS: 70551 ==

== ENCOUNTER 2025-03-30 15:12 | Outpatient (REF) | payer OTHER, SELFPAY ==
--- NOTE | 2025-03-30 15:16 | EMG_ITS ---
Chief complaint: At least 2 months of intermittent numbness on left face, left 4th and 5th digits/hand, left thigh and bottom of left foot. She has also noticed intermittent left calf muscle twitching. She is an avid runner. Denies any other medical history. On exam I did not see any weakness, atrophy or fasciculations. Reason for referral: Evaluate for neuropathy Referred by: Dr. Robertson Procedure done: Upper and lower extremity NCS/EMG Precautions and/or limitations: None The limb temperature was monitored continuously and remained between 32-36 degrees C during the performance of the NCS. Nerve Conduction Studies Anti Sensory Summary Table ?Stim Site NR Onset (ms) Norm Onset (ms) Peak (ms) Norm Peak (ms) O-P Amp (?V) Norm O-P Amp Site1 Site2 Delta-0 (ms) Dist (cm) Redd (m/s) Norm Redd (m/s) Left Median Anti Sensory (2nd Digit) Wrist ? 2.5 3.3 <3.6 69.0 >10 Wrist 2nd Digit 2.5 14.0 56 Left Radial Anti Sensory (Thumb) Forearm ? 1.5 2.1 <3.1 46.6 Forearm Thumb 1.5 0.0 Left Sural Anti Sensory (Lat Mall) Calf ? 2.6 3.4 <4.0 18.7 >5.0 Calf Lat Mall 2.6 14.0 54 Right Sural Anti Sensory (Lat Mall) Calf ? 2.9 3.8 <4.0 7.4 >5.0 Calf Lat Mall 2.9 14.0 48 Left Ulnar Anti Sensory (5th Digit) Wrist ? 2.3 3.3 <3.7 53.6 >15.0 Wrist 5th Digit 2.3 14.0 61 Motor Summary Table ?Stim Site NR Onset (ms) Norm Onset (ms) O-P Amp (mV) Norm O-P Amp iAmp (mV) Amp (1st) (%) Site1 Site2 Delta-0 (ms) Dist (cm) Redd (m/s) Norm Redd (m/s) Left Median Motor (Abd Poll Brev) Wrist ? 3.2 <3.9 11.7 >4.5 12.8 100.0 Elbow Wrist 3.8 18.5 49 >45 Elbow ? 7.0 11.2 12.5 95.7 Left Peroneal Motor (Ext Dig Brev) Ankle ? 5.4 <4.0 3.8 >2.5 4.9 100.0 Ankle Ext Dig Brev 5.4 0.0 B Fib ? 11.6 3.3 3.8 86.8 B Fib Ankle 6.2 31.5 51 >40 Poplt ? 12.7 3.1 3.5 81.6 Poplt B Fib 1.1 4.0 36 >40 Left Tibial Motor (Abd Casper Brev) Ankle ? 4.2 <5 13.0 >2.5 18.0 100.0 Ankle Abd Casper Brev 4.2 0.0 Knee ? 12.2 10.6 14.9 81.5 Knee Ankle 8.0 38.0 48 >40 Left Ulnar Motor (Abd Dig Minimi) Wrist ? 3.0 <3.0 10.5 >5 12.4 100.0 B Elbow Wrist 3.3 18.0 55 >45 B Elbow ? 6.3 10.4 12.5 99.0 A Elbow B Elbow 1.6 10.0 62 >45 A Elbow ? 7.9 9.6 11.5 91.4 EMG ?Side Muscle Nerve Root Ins Act Fibs Psw Amp Dur Poly Recrt Int Pat Comment Left 1stDorInt Ulnar C8-T1 Nml Nml Nml Nml Nml 0 Nml Complete Left FlexCarRad Median C6-7 Nml Nml Nml Nml Nml 0 Nml Complete Left Biceps Musculocut C5-6 Nml Nml Nml Nml Nml 0 Nml Complete Left Triceps Radial C6-7-8 Nml Nml Nml Nml Nml 0 Nml Complete Left Deltoid Axillary C5-6 Nml Nml Nml Nml Nml 0 Nml Complete Right AbdHallucis MedPlantar S1-2 Nml Nml Nml Nml Nml 0 Nml Complete Right AntTibialis Dp Br Peron L4-5 Nml Nml Nml Nml Nml 0 Nml Complete Right PostTibialis Tibial L5, S1 Nml Nml Nml Nml Nml 0 Nml Complete Right MedGastroc Tibial S1-2 Nml Nml Nml Nml Nml 0 Nml Complete Right VastusMed Femoral L2-4 Nml Nml Nml Nml Nml 0 Nml Complete Left AbdHallucis MedPlantar S1-2 Nml Nml Nml Nml Nml 0 Nml Complete Left AntTibialis Dp Br Peron L4-5 Nml Nml Nml Nml Nml 0 Nml Complete Left PostTibialis Tibial L5, S1 Nml Nml Nml Nml Nml 0 Nml Complete Left MedGastroc Tibial S1-2 Nml Nml Nml Nml Nml 0 Nml Complete Left VastusMed Femoral L2-4 Nml Nml Nml Nml Nml 0 Nml Complete Paraspinal EMG ?Side Muscle Nerve Root Ins Act Fibs Psw Comment Left Cervical Upper Rami Nml Nml Nml Left Cervical Mid Rami Nml Nml Nml Left Cervical Lower Rami Nml Nml Nml Right Lumbar Upper Rami Nml Nml Nml Right Lumbar Mid Rami Nml Nml Nml Right Lumbar Lower Rami Nml Nml Nml Left Lumbar Upper Rami Nml Nml Nml Left Lumbar Mid Rami Nml Nml Nml Left Lumbar Lower Rami Nml Nml Nml FINDINGS: Left peroneal nerve showed prolonged distal latency, normal amplitude and slow conduction velocity across fibular neck. All other nerves tested were within normal. Concentric needle EMG was performed in selected muscles of the left upper and bilateral lower extremities, cervical and lumbar paraspinals.. Study did not reveal signs of electric abnormalities as shown in the table above. IMPRESSION: 1. This is an abnormal study. 2. 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 3. There is no electrodiagnostic evidence for median neuropathy, ulnar neuropathy, brachial plexopathy, cervical radiculopathy, tibial neuropathy, lumbosacral plexopathy, lumbar radiculopathy, or peripheral neuropathy. CLINICAL COMMENT: Findings of peroneal neuropathy would not explain symptoms on upper extremity. Thank you for your kind referral. Vy Lama MD, AMNA Board Certified, [place] Board [employer] and Rehabilitation (ABPMR) Board Certified, [place] Board of Electrodiagnostic Medicine (ABEM) CODIN [phone] MTDD
== END 2025-03-30 15:13 | disposition home or self-care (01) ==
LOC: HO.NEURO 15:12
PROVIDERS: PCP Internal Medicine; Visit Provider Internal Medicine
DX: R20.2 Paresthesia of skin (principal)
CPT/HCPCS: 95886; 95911

== ENCOUNTER → 2025-03-30 15:16 | Outpatient (BNV) | payer OTHER, SELFPAY | PROVIDERS: PCP Internal Medicine; Visit Provider Physical Medicine & Rehabilitation | DX: R20.0 Anesthesia of skin (principal); R20.2 Paresthesia of skin; S84.12XA Injury of peroneal nerve at lower leg level, left leg, initial encounter | CPT/HCPCS: 95886; 95911 ==

== ENCOUNTER 2025-04-02 17:19 | Outpatient (AMB) | payer OTHER, SELFPAY ==
[2025-04-02 17:24] VITALS: BP 120/72; BMI 20.7
--- NOTE | 2025-04-02 17:24 | A.OFFPC_ITS ---
Vital Signs 04/02/25 17:24 Height 5 ft 7 in Weight 132 lb BMI 20.7 BP 120/72 Blood Pressure Location Lt brachial Position Sitting Intake Visit Reasons: PE Intake Note: Patient here for a physical exam Marriage And Family Social Worker Required: No Accompanied by: Self / Same As Patient Allergies cyclobenzaprine [From Flexeril] Allergy (Intermediate, Verified 04/02/25 17:35) upse stomach tramadol Adverse Reaction (Intermediate, Verified 04/02/25 17:35) nausea Medication List - Last Reconciled 04/02/25 by Jillian Smith MD No Known Home Meds Tobacco use date assessed: 02/22/25 Dental Screening Dental Screen Date: 02/22/25 HPI HPI Comments History of Present Illness Details The patient is a 50-year-old female presenting for a physical exam and preventative care screening. Her tetanus vaccination status is uncertain, with the last dose possibly administered over ten years ago. She has allergies to Flexeril, which causes an upset stomach, and Tramadol, which causes nausea. The patient has a significant family history of cancer and chronic diseases. Her father had stomach cancer, and her mother, who last April, had lung cancer, heart disease, chronic kidney disease, and diabetes. The patient does not smoke and consumes alcohol only on special occasions. A colonoscopy performed last year revealed tubular adenoma and diverticulosis. The patient did not receive a follow-up recommendation but was informed that the next colonoscopy should be in five years due to the adenoma findings. The patient experiences constipation and manages it with a high-fiber diet, including overnight oats with flaxseed and vitor seeds. She reports numbness and tingling, with a recent nerve study indicating left peroneal neuropathy at the fibular neck. The patient is scheduled to see a neurologist in June for further evaluation. Recent blood work showed a mildly elevated liver enzyme (ALT 36 U/L), with plans to repeat the test and possibly conduct further investigations if elevated again. - Tetanus vaccination status review - Colonoscopy performed last year with f indings of tubular adenoma and diverticulosis - Blood work and MRI of the brain conduc joni, with MRI results normal - Liver enzyme (ALT) mildly elevated, pl an to repeat test - Scheduled neurology appointment for ev aluation of neuropathy [facility] Medical History (Updated 04/02/25 @ 17:49 by Jillian Smith MD) Left sided sciatica Surgical History History of endometrial ablation History of tubal ligation History of appendectomy History of section Family History (Updated 04/02/25 @ 17:39 by Jillian Smith MD) Father Stomach cancer, Onset Age: 80 Mother Diabetes CVD (cardiovascular disease) Heart disease Lung cancer CKD (chronic kidney disease) Maternal Grandmother Breast cancer Paternal Grandmother Breast cancer Son No problems noted. Daughter No problems noted. Daughter No problems noted. Sister No problems noted. Sister No problems noted. Sister No problems noted. Social History Household Members: Spouse Household Members Other:: daughter Housing: House Are you a primary career based intervention coordinator to a significant other at home: No Do you presently have visiting nurse or other home services: No Alcohol intake: current Alcohol intake frequency: holidays/special occasions only Patient Tobacco Use Status: Never used Tobacco e-Cigarette/Vaping Use: Never Used Second Hand Smoke Exposure: No service: No Current occupational status: employed Current occupation: [employer] Current occupational exposures/hazards: No Sexual orientation: Straight/Heterosexual Gender identity: Female Cognitive needs: No Hearing needs: No Vision needs: No Female Reproductive History Menstrual Age of Menarche: 12 Questionnaire Thrive Questionnaire Date Thrive assessed: 02/22/25 I am a: Patient What is your living situation today?: I have a steady place to live Within the past 12 months, did the food you bought not last and you didn't have the money to get more?: Never true Within the past 12 months, did you worry whether your food would run out before you got money to buy more?: Never true Do you have trouble paying for medicines?: No Do you have trouble getting transportation to medical appointments?: No Do you have trouble paying your heating and electricity bill?: No Do you have trouble taking care of your child, family member or friend?: No Do you have trouble with day-to-day activities such as bathing, preparing meals, shopping, managing finances, etc.?: No Are you currently unemployed and looking for a job?: No Are you interested in more education?: No Please select the resources that you would like help with: None Currently or been in a relationship where the following occur: I choose not to answer THRIVE Score: 0 VICK-7 AMB Questionnaire VICK-7 Date VICK - 7 assessed: 02/22/25 Source: Developed by Drs. Tera Parsons, Awilda Hernandez, Aakash Adkins and colleagues, with an educational madhuri from [employer]. Review of Systems Const All systems reviewed & are unremarkable except as noted in HPI and below Card Denies chest pain at rest, Denies chest pain with activity, Denies edema, Denies irregular heart rhythm, Denies claudication, Denies dyspnea, Denies dyspnea on exertion, Denies orthopnea, Denies paroxysmal nocturnal dyspnea and Denies slow heart rate Resp Denies cough, Denies dyspnea and Denies dyspnea on exertion GI Denies abdominal pain, Denies change in bowel habits, Denies excessive flatus, Denies nausea and Denies vomiting Denies urinary incontinence, Denies urinary hesitancy and Denies urinary urgency Musc Denies abnormal gait, Denies atrophy, Denies deformity and Denies limited range of motion Skin/Breast Denies bleeding lesions, Denies changing lesions and Denies rash Neuro Denies abnormal gait, Denies behavioral changes, Denies confusion and Denies lack of coordination Psych Denies behavioral changes and Denies confusion Physical exam (Primary Care) Vital Signs: Last Vital Signs BP 120/72 04/02/25 17:24 BMI result Body Mass Index 20.7 Tobacco/Smoking Status: Tobacco use Status Tobacco use date assessed 02/22/25 04/02/25 17:29 Patient Tobacco Use Status Never used Tobacco 04/02/25 17:29 e-Cigarette/Vaping Use Never Used 04/02/25 17:29 Thrive Assessment: Date of Thrive Assessment Date Thrive assessed 02/22/25 04/02/25 17:29 Currently or been in a relationship where the following occur: I choose not to answer Const General: No confusion Orientation/consciousness: patient oriented x3 and No confusion HENMT Head: Yes normal to inspection, Yes normocephalic and Yes atraumatic Ears: external ears normal Eyes General: appearance normal, both eyes and all related structures Eyelids: Yes eyelids normal Conjunctivae: conjunctivae normal Neck Neck: Yes normal visual inspection and Yes supple Resp Effort & Inspection: normal respiratory effort Auscultation: clear to auscultation bilaterally Cardio Jugular venous distension: no JVD Rate: regular rate Rhythm: regular rhythm Heart sounds: S1 normal heart sound present and S2 normal heart sound present GI Inspection: Yes normal to inspection Palpation (GI): Soft to palpation and nontender Auscultation: normal bowel sounds Skin General skin exam: no rashes or lesions noted Neuro General: patient oriented x3, no focal motor deficits and No confusion Extrem General: Yes full ROM Psych Appearance: grossly normal Coding Level of Care Code Est Pt Prev Care 40-64y(07064) Diagnoses Physical exam Z00.00 Time Spent (min) 31 Assessment & Plan Assessment & Plan (1) Physical exam: Code(s): Z00.00 - Encounter for general adult medical examination without abnormal findings Category: Medical Plan The patient's tetanus vaccination status is uncertain, and it is recommended to update it if it has been over ten years since the last dose. The patient should continue to avoid Flexeril and Tramadol due to adverse reactions. Given the family history of cancer and chronic diseases, regular screenings and monitoring are advised. The patient should follow up with a colonoscopy in five years due to the presence of tubular adenoma. For constipation, the patient should maintain a high-fiber diet and monitor symptoms. The patient is scheduled to see a neurologist in June for further evaluation of left peroneal neuropathy. The mildly elevated liver enzyme should be rechecked, and if elevated, further investigation such as a hepatic panel or liver ultrasound may be necessary. Patient was informed and verbally consented to the use of an ambient scribe for clinic note documentation during this visit. During the visit, I discussed the importance of updating the tetanus vaccination if it has been over ten years since the last dose. We reviewed the patient's allergies to Flexeril and Tramadol, advising avoidance due to adverse reactions. Given the family history of cancer and chronic diseases, I emphasized the need for regular screenings and monitoring. I advised the patient to follow up with a colonoscopy in five years due to the presence of tubular adenoma. For constipation, I recommended maintaining a high- fiber diet and monitoring symptoms. The patient is scheduled to see a neurologist in June for further evaluation of left peroneal neuropathy. I discussed rechecking the mildly elevated liver enzyme and considering further investigation if elevated. Orders: Orders MM tomosynthesis screening BI Today Z10.17 - Encounter for screening mammogram for malignant neoplasm of breast Liver Panel Today R74.01 - Elevation of levels of liver transaminase levels Patient Instructions: - Update tetanus vaccination if it has been over ten years since the last dose. - Avoid Flexeril and Tramadol due to adverse reactions. - Follow up with a colonoscopy in five years. - Maintain a high-fiber diet to manage constipation. - Attend neurology appointment in June for further evaluation of neuropa thy. - Recheck liver enzyme levels and follow up if elevated.
== END 2025-04-02 17:50 | disposition home or self-care (01) ==
LOC: HO.HMCH 17:20
PROVIDERS: PCP Internal Medicine; Visit Provider Internal Medicine
DX: Z00.00 Encounter for general adult medical examination without abnormal findings (principal)

== ENCOUNTER → 2025-04-02 17:19 | Outpatient (BNVA) | payer OTHER, SELFPAY | PROVIDERS: PCP Internal Medicine; Visit Provider Internal Medicine | DX: Z13.89 Encounter for screening for other disorder (principal) ==

== ENCOUNTER 2025-06-05 08:13 | Outpatient (REF) | payer OTHER, SELFPAY ==
--- NOTE | ~2025-06-05 | MM_ITS ---
EXAMINATION: MM SCREENING DIGITAL BREAST TOMOSYNTHESIS, BILATERAL CLINICAL INFORMATION: Screening. Asymptomatic. COMPARISON: Mammography: Comparison is made with available priors TECHNIQUE: Digital breast mammography with tomosynthesis is performed in both the craniocaudal and mediolateral oblique views along with computer-aided detection (CAD). FINDINGS: The breasts are extremely dense, which lowers the sensitivity of mammography (ACR BI-RADS breast composition Category d). There are no significant masses, abnormal calcifications, or other abnormalities. MM/MM tomosynthesis screening BI IMPRESSION: No mammographic evidence of malignancy. ASSESSMENT: BI-RADS BI-RADS 1 - Negative RECOMMENDATION: Routine annual mammography screening. 1 year F/U This examination should not preclude the clinical evaluation of a suspicious palpable abnormality. This patient's information was entered into a reminder system with a target due date for their next mammogram. Electronically signed by: Shae Rios DO 06/06/2025 02:35 PM EDT
== END 2025-06-05 08:14 | disposition home or self-care (01) ==
LOC: HO.MAMMO 08:13
PROVIDERS: PCP Internal Medicine; Visit Provider Internal Medicine
DX: Z12.31 Encounter for screening mammogram for malignant neoplasm of breast (principal)
CPT/HCPCS: 77063; 77067

== ENCOUNTER → 2025-06-05 08:15 | Outpatient (BNV) | payer OTHER, SELFPAY | PROVIDERS: PCP Internal Medicine; Visit Provider Internal Medicine | DX: Z12.31 Encounter for screening mammogram for malignant neoplasm of breast (principal) | CPT/HCPCS: 77063; 77067 ==

== ENCOUNTER 2025-07-20 08:15 | Outpatient (AMB) | payer OTHER, SELFPAY ==
--- NOTE | 2025-07-20 08:16 | A.OFFVIS_ITS ---
Vital Signs 07/20/25 08:20 Height 5 ft 7 in Weight 135 lb 6 oz BMI 21.2 BP 110/78 Blood Pressure Location Rt brachial Position Sitting Pulse 65 Pulse Source Pulse Oximeter Pulse Oximetry (%) 97 Oxygen Delivery Method Room Air Intake Visit Reasons: INP-Paresthesia of skin Intake Note: Parasthesia of skin Customer Success Advocate Required: No Accompanied by: Self / Same As Patient Allergies cyclobenzaprine (From Flexeril) Allergy (Intermediate, Verified 07/20/25 08:17) upse stomach tramadol Adverse Reaction (Intermediate, Verified 07/20/25 08:17) nausea HPI Comments Details: 50y/o female comes for evaluation episodic tingling and numbness in her face. she started noticing facial tingling on her left side about 6 mths ago . The episodes were lasting few hrs . she denied any headaches , facial pain , speech difficulty , double vision, dizziness , nausea, photophobia associated with it . she was under a lot of stress at work she thought it was related to that. she denies neck pain . No recent dental work . No difficulty chewing or swallowing . she cannot identify any triggers. No h/o migraines . she had daily epsidoes initially but has decreased and it is about once a week . she also has numbness in her left leg for a few years and she thinks it is relate dto he rsciatica. she has emg/ncs which showed left peroneal neuropathy - she wears a compression socks for varicose veins . she runs 20-30 miles a week . [facility] Medical History (Updated 07/20/25 @ 09:00 by Meghan Bragg MD) Peroneal neuropathy at knee Facial paresthesia Left sided sciatica Surgical History History of endometrial ablation History of tubal ligation History of appendectomy History of section Family History Father Stomach cancer, Onset Age: 80 Mother Diabetes CVD (cardiovascular disease) Heart disease Lung cancer CKD (chronic kidney disease) Maternal Grandmother Breast cancer Paternal Grandmother Breast cancer Son No problems noted. Daughter No problems noted. Daughter No problems noted. Sister No problems noted. Sister No problems noted. Sister No problems noted. Social History Household Members: Spouse Household Members Other:: daughter Housing: House Are you a primary wild animal caretaker to a significant other at home: No Do you presently have visiting nurse or other home services: No Alcohol intake: current Alcohol intake frequency: holidays/special occasions only Patient Tobacco Use Status: Never used Tobacco e-Cigarette/Vaping Use: Never Used Second Hand Smoke Exposure: No service: No Current occupational status: employed Current occupation: [employer] Current occupational exposures/hazards: No Sexual orientation: Straight/Heterosexual Gender identity: Female Cognitive needs: No Hearing needs: No Vision needs: No Female Reproductive History Menstrual Age of Menarche: 12 Physical Exam Vital Signs: Last Vital Signs Pulse 65 07/20/25 08:20 BP 110/78 07/20/25 08:20 Pulse Ox 97 07/20/25 08:20 Oxygen Delivery Method Room Air 07/20/25 08:20 BMI result Body Mass Index 21.2 Const General: cooperative, healthy appearing, comfortable, no acute distress and well developed Nutritional Appearance: average body habitus Orientation/consciousness: patient oriented x3 Limitations: no limitations Eyes Pupils: Equal, round and reactive pupils present Neuro General: patient oriented x3, gait normal, tone normal, moves all extremities and no focal motor deficits Cranial nerves: Yes Facial sensation intact/muscles of mastication intact, Yes Equal, round and reactive pupils present, Yes Bilaterally intact EOM present, Yes Nystagmus not present, Yes Normal facial strength present, Yes Midline tongue present, Yes Symmetric palate elevation present and Yes Ability to bilaterally elevate shoulders present Cognition (Neuro): normal cognition Gait exam (Neuro): Normal gait present Motor exam (neuro): 5/5 motor strength present throughout and Normal motor muscle tone present throughout Deep tendon reflexes (DTR's): Right triceps reflex intensity grade: 2+, Left triceps reflex intensity grade: 2+, Rt Biceps (C5, C6): 2+, Left biceps reflex i ntensity grade: 2+, Right brachioradialis reflex intensity grade: 2+, Left brachioradialis reflex intensity grade: 2+, Right patellar reflex intensity grade: 3+ and Left patellar reflex intensity grade: 3+ Coordination: [id number] test normal Results Reviewed Results Reviewed: Lumbar MRI- At L5-S1 there is a posterior disc protrusion with an extruded component extending into the left subarticular recess with mass effect on the traversing left S1 nerve root. There is no central stenosis. 2. At L4-L5 there is a diffuse disc bulge with a more focal disc protrusion posteriorly in the midline but there is no central stenosis or foraminal narrowing. 3. The uterus appears bulky and these likely a fibroid which measures 4.1 cm. This could be further evaluated with pelvic ultrasound. Assessment & Plan Assessment & Plan (1) Facial paresthesia: Comment: left face epsiodic tingling Code(s): R20.2 - Paresthesia of skin Category: Medical (2) Peroneal neuropathy at knee: Code(s): G57.30 - Lesion of lateral popliteal nerve, unspecified lower limb Category: Medical Qualifiers: Laterality: left Qualified Code(s): G57.32 - Lesion of lateral popliteal nerve, left lower limb Plan Discussed EMg results c/w left peroneal neuropathy - the left symptoms lopez snot bother . suggested to avoid compression to the knee or lateral leg to avoid further injury . Will consider more detailed evaluation if her symptoms worsen MRA winnie to r/o neurovascular compression Orders: Orders MR angio head wo/w con Today G50.0 - Trigeminal neuralgia Coding Level of Care Code New Pt Level 4 (86712) Diagnoses Facial paresthesia R20.2 Neuropathy of peroneal nerve at left knee G57.32 Laterality: left
[2025-07-20 08:20] VITALS: BP 110/78; PULSE 65; O2SAT 97; BMI 21.2
== END 2025-07-20 08:53 | disposition home or self-care (01) ==
LOC: HO.HSMS 08:16
PROVIDERS: PCP Internal Medicine; Visit Provider Psychiatry & Neurology Neurology
DX: R20.2 Paresthesia of skin (principal); G57.32 Lesion of lateral popliteal nerve, left lower limb
CPT/HCPCS: 99204

== ENCOUNTER → 2025-09-14 09:10 | Outpatient (BNV) | payer OTHER, SELFPAY | PROVIDERS: PCP Internal Medicine; Visit Provider Radiology Diagnostic Radiology | DX: G50.0 Trigeminal neuralgia (principal) | CPT/HCPCS: 70546 ==

== ENCOUNTER 2025-09-14 09:11 | Outpatient (REF) | payer OTHER, SELFPAY ==
--- NOTE | ~2025-09-14 | MR_ITS ---
EXAMINATION: MR ANGIOGRAPHY BRAIN WITHOUT AND WITH CONTRAST CLINICAL INFORMATION: Trigeminal neuralgia left face. COMPARISON: No prior MR angiography. Correlation made with MR brain 03/07/2025. TECHNIQUE: 3-D [id number] and postcontrast MR angiography the brain was performed using standard techniques. 6 mL Gadavist administered IV. Examination performed on a 1.5 Radha Siemens high-field unit. FINDINGS: There is normal flow related enhancement of the major intracranial vasculature in the anterior and posterior circulations. There is no evidence of aneurysm, occlusion, or high-grade stenosis. No evidence of AVM is present. origin of the left ROPE MACHINE SETTER is present. The MCA bifurcations are normal. The basilar artery and tip appear normal. The carotid termini appear normal. The anterior communicating artery is normal. The right posterior communicating artery is present and patent. Normal PICA branches arise from both V4 vertebral artery segments. Regarding the 5th cranial nerves, no direct vessel abutment is noted on either side. Major cortical and dural venous sinuses enhance normally. MR/MR angio head wo/w con IMPRESSION: Normal MRA of the brain. Electronically signed by: Omar Traore MD 09/14/2025 10:13 AM [facility]
== END 2025-09-14 09:12 | disposition home or self-care (01) ==
LOC: HO.MRI 09:11
PROVIDERS: PCP Internal Medicine; Visit Provider Psychiatry & Neurology Neurology
DX: G50.0 Trigeminal neuralgia (principal)
CPT/HCPCS: 70546; A9585